=== PATIENT | male | born 1980 | race Caucasian/White ===

== ENCOUNTER → 2020-11-04 | Outpatient (CLI) | payer OTHER | LOC: US 08:00 | DX: R10.9 Unspecified abdominal pain (principal); G89.29 Other chronic pain | CPT/HCPCS: 76705 ==

== ENCOUNTER → 2020-11-08 | Outpatient (CLI) | payer OTHER | LOC: KOH-I 14:30 | DX: R10.9 Unspecified abdominal pain (principal) | CPT/HCPCS: 76775 ==

== ENCOUNTER → 2021-09-08 | Outpatient (CLI) | payer OTHER ==
[~2021-09-08] MED LIST: OMNICEF 300 MG300 MG PO; ZITHROMAX250 MG PO; ZOFRAN ODT 4 MG4 MG SL
== END ==
LOC: EXRD 11:35
DX: U07.1 COVID-19 (principal); R91.8 Other nonspecific abnormal finding of lung field
CPT/HCPCS: 71046

== ENCOUNTER → 2021-09-08 | Outpatient (CLI) | payer OTHER ==
[~2021-09-08] VITALS: Ht 185.4 cm; Wt 88.9 kg
== END ==
LOC: EROP 12:53
DX: U07.1 COVID-19 (principal); E86.0 Dehydration
CPT/HCPCS: 96365

== ENCOUNTER 2021-09-10 16:54 | Emergency (ER) | payer OTHER ==
[2021-09-10 17:55] LABS: RED BLOOD COUNT 5.36 M/UL (4.20-5.50); WHITE BLOOD COUNT 7.7 K/UL (4.5-11.0)
[2021-09-10 18:16] LABS: BUN/CREATININE RATIO 29 (0-10)
[2021-09-10] MEDS ORDERED: OMNICEF 300 MG300 MG PO (22:23)
[2021-09-10] MEDS ORDERED: ZITHROMAX250 MG PO (22:23)
[2021-09-10] MEDS ORDERED: ZOFRAN ODT 4 MG4 MG SL (22:23)
== END 2021-09-10 22:40 | disposition home or self-care (01) ==
LOC: ER1 16:54
PROVIDERS: Physician Assistant
DX: U07.1 COVID-19 (principal); J12.82 Pneumonia due to coronavirus disease 2019
CPT/HCPCS: 71046; 80053; 82550; 82553; 83874; 84484; 85025; 85379; 87040; 93005; 96374; 99284; J2405; Q9967

== ENCOUNTER → 2021-10-10 | Outpatient (CLI) | payer OTHER | LOC: EXRD 11:38 | DX: J12.81 Pneumonia due to SARS-associated coronavirus (principal); J18.9 Pneumonia, unspecified organism; U09.9 Post COVID-19 condition, unspecified; R91.8 Other nonspecific abnormal finding of lung field | CPT/HCPCS: 71046 ==